=== PATIENT | male | born 1985 | race African-American/Black ===

== ENCOUNTER 2018-05-24 02:17 | Emergency (ER) | payer BC ==
[~2018-05-24] VITALS: Ht 180.3 cm; Wt 74.8 kg
[2018-05-24 02:55] VITALS: BP 127/77
[2018-05-24 04:26] LABS: CALCIUM 8.3 mg/dL (8.5-10.1); CREATININE 1.5 mg/dL (0.7-1.3); POTASSIUM 2.7 mmol/L (3.5-5.1); PROTIME 10.3 Seconds (9.3-11.4)
[2018-05-24 04:27] LABS: APTT 25.5 Seconds (24.5-32.8); HEMATOCRIT 38.4 % (42.0-52.0); MCH 30.2 pg (26.0-34.0); MCHC 33.9 % (28.0-37.0); MCV 89.1 fL (80.0-100.0); RBC 4.31 mil/uL (4.50-6.00); RDW 14.1 % (10.5-14.5); WBC 11.8 thou/uL (4.0-11.0)
== END 2018-05-24 02:55 | disposition short-term general hospital (02) ==
LOC: ER 02:17
PROVIDERS: Emergency Medicine
DX: S31.101A Unspecified open wound of abdominal wall, left upper quadrant without penetration into peritoneal cavity, initial encounter (principal); S31.100A Unspecified open wound of abdominal wall, right upper quadrant without penetration into peritoneal cavity, initial encounter; W34.00XA Accidental discharge from unspecified firearms or gun, initial encounter; Y93.89 Activity, other specified; Y92.89 Other specified places as the place of occurrence of the external cause; Y99.8 Other external cause status